=== PATIENT | female | born 1975 | race Caucasian/White ===

== ENCOUNTER 2025-01-31 19:25 | Observation (INO) ==
[2025-01-31 19:38] VITALS: BMI 22.8
[2025-01-31 19:59] LABS: BILIRUBIN,URINE NEGATIVE (NEGATIVE); BLOOD/HEMOGLOBIN,URINE 1+ (NEGATIVE); GLUCOSE, URINE NEGATIVE (NEGATIVE); KETONES,URINE 3+ (NEGATIVE); LEUKOCYTE ESTERASE ,URINE 1+ (NEGATIVE); NITRITES,URINE NEGATIVE (NEGATIVE); PROTEIN,URINE 1+ (NEGATIVE); UROBILINOGEN,URINE NORMAL (NORMAL)
[2025-01-31 20:00] LABS: APPEARANCE,URINE CLEAR (CLEAR); COLOR,URINE YELLOW (YELLOW)
[2025-01-31 20:14] LABS: BACTERIA,URINE TRACE /HPF (NEGATIVE); SQUAMOUS EPITHELIAL CELL,UR MODERATE /HPF (NEGATIVE)
--- NOTE | 2025-01-31 20:42 | ED.ABDFE ---
HPI Time Seen Time Seen by Provider: 01/31/25 20:40 PCP Primary Care Physician: jessica Powers Doctors Chief Complaint Comments: Lower abdominal pain with nausea. Seen by primary care provider this morning and diagnosed with a urinary tract infection and was given Rocephin 1 g IM and Toradol 60 mg IM for pain. The patient states that she now has some suprapubic pain and she is nauseated. Chief Complaint:: lower abd pain thats constant since this am also c/o nausea Source History Provided: Patient Mode of arrival Mode of Arrival: Ambulatory Timing Onset of Chief Complaint: 01/31/25 PMH PMH Past Medical History: No Past Surgical History: Yes Surgical History: and MAIL HANDLER Surgery Past Surgical History Comment: uterine ablastion, tummy tuck Family History History of Family Medical Conditions: No Social History Does patient currently use any type of tobacco product: No Have you used tobacco products in the last 12 months: No Type of Tobacco Use: None Does any household member use tobacco: No Alcohol Use: None Do you use any recreational Drugs:: No Lives With: Family Lives Where: Home Infectious screening In the last 2 months have you had wt loss of >10#?: NO Have you had fever, night sweats or hemotysis?: No Have you traveled outside the country in the last 6 months?: No Isolation: Standard ROS Review of Systems Constitutional: Other (suprapubic abdominal pain with nausea) Eyes: No Symptoms Reported ENTM: No Symptoms Reported Respiratoy: No Symptoms Reported Cardiovascular: No Symptoms Reported Gastrointestinal/Abdominal: Abdominal Pain and Nausea Genitourinary: No Symptoms Reported Neurological: No Symptoms Reported Musculoskeletal: No Symptoms Reported Integumentary: No Symptoms Reported Hematologic/Lymphatic: No Symptoms Reported Endocrine: No Symptoms Reported Psychiatric: No Symptoms Reported PE Vital Signs Vitals: Vital Signs Temperature 98 F Pulse Rate 90 Respiratory Rate 18 Blood Pressure 94/54 O2 Sat by Pulse Oximetry 98 General Limitations: No Limitations General Appearance: In Distress (mild distress) Head Head Exam: Normal Inspection Eyes Eye exam: Normal Appearance, PERRL and EOMI ENT ENT Exam: Normal Exam, Normal Oropharynx and Normal External Ear Exam Neck Neck Exam: Normal Inspection, Full ROM and Trachea Midline Chest Chest Inspection: Normal Inspection and Symmetric Chest Wall Rise Respiratory Respiratory Exam: Normal Lung Sounds Bilat Cardiovascular Cardiovascular Exam: Regular Rate and Normal Rhythm Abdominal Exam Abdominal Exam: Normal Inspection and Normal Bowel Sounds Abdominal Tenderness: Suprapubic Back Back Exam: Normal Inspection Extremeties Extremities Exam: Normal Inspection Neurologic Neurological Exam: Alert, Oriented X3 and CN II-XII Intact Psychiatric Psychiatric Exam: Normal Affect and Normal Mood Skin Skin Exam: Warm, Dry and Intact MDM Differential Diagnosis Differential Diagnosis- Considerations may include:: Urinary obstruction, Urinary tract infection, Urolithiasis and Other (comments) (cystitis) COURSE Treatment Treatment: Patient remained relatively stable during ER visit. We did do a urine analysis and she did have some blood in her urine +1 leukocyte esterase trace bacteria. We did give her Zofran for nausea 4 mg ODT and gave her Pyridium is that we were treating a cystitis but she continue to have some suprapubic pain that was considered at this time to be cystitis but since she was having a pain we did go ahead and do a CT scan of her abdomen and pelvis to see if she had some either kidney stones and appendix side this is also in the differential. We did a CT scan of that and she did end up having a an appendicitis. Called the surgeon on-call Dr. Garcia about this patient at 0 after talking first to the patient about the findings and he stated he will be in to see the patient he has rested premedicate the patient with some Zosyn 3.375 mg. And we also started some IV fluids at 125 cc an hour. The nurses did discuss this patient with case management and they said the patient could be referred to observation. [facility]OR Labs Reviewed Laboratory Results Reviewed?: Yes 01/31/25 22:10 01/31/25 22:10 Laboratory: WBC 11.7 X10^3/uL (3.6-10.0) H 01/31/25 22:10 RBC 4.33 X10^6/uL (3.5-5.4) 01/31/25 22:10 Hgb 13.0 g/dL (12.0-16.0) 01/31/25 22:10 Hct 38.3 % (36.0-47.0) 01/31/25 22:10 MCV 88.4 fL (80.0-100.0) 01/31/25 22:10 MCH 30.0 pg (27.0-34.0) 01/31/25 22:10 MCHC 34.0 g/dL (33.0-35.0) 01/31/25 22:10 RDW 13.8 % (11.6-16.5) 01/31/25 22:10 Plt Count 151 X10^3/uL (150.0-450.0) 01/31/25 22:10 MPV 10.4 fL (7.4-11.0) 01/31/25 22:10 Neut % (Auto) 84.7 % (42.0-75.0) H 01/31/25 22:10 Lymph % (Auto) 10.1 % (21.0-51.0) L 01/31/25 22:10 [place] % (Auto) 4.7 % (0.0-13.0) 01/31/25 22:10 Eos % (Auto) 0.0 % (0.9-2.9) L 01/31/25 22:10 Baso % (Auto) 0.5 % (0.2-1.0) 01/31/25 22:10 Neut # (Auto) 9.9 x10^3/uL (2.2-4.8) H 01/31/25 22:10 Lymph # (Auto) 1.2 X10^3/uL (1.3-2.9) L 01/31/25 22:10 [place] # (Auto) 0.6 x10^3/uL (0.3-0.8) 01/31/25 22:10 Eos # (Auto) 0.0 x10^3/uL (0.0-0.2) 01/31/25 22:10 Baso # (Auto) 0.1 X10^3/uL (0.0-0.1) 01/31/25 22:10 Absolute Nucleated RBC 0.0 /100WBC 01/31/25 22:10 Sodium 139 mmol/L (136-145) 01/31/25 22:10 Corrected Sodium TNP 01/31/25 22:10 Potassium 3.9 mmol/L (3.5-5.1) 01/31/25 22:10 Chloride 103 mmol/L (98-107) 01/31/25 22:10 Carbon Dioxide 27.3 mmol/L (21-32) 01/31/25 22:10 BUN 16 mg/dL (7-18) 01/31/25 22:10 Creatinine 0.76 mg/dL (0.55-1.02) 01/31/25 22:10 Est GFR (MDRD) Af Amer > 60 (>60) 01/31/25 22:10 Est GFR (MDRD) Non-Af > 60 (>60) 01/31/25 22:10 Glucose 99 mg/dL (65-99) 01/31/25 22:10 Calcium 8.6 mg/dL (8.5-10.1) 01/31/25 22:10 Corrected Calcium 9.3 mg/dL (8.5-10.1) 01/31/25 22:10 Total Bilirubin 0.80 mg/dL (0.2-1.0) 01/31/25 22:10 AST 14 Units/L (15-37) L 01/31/25 22:10 ALT 16 Units/L (12-78) 01/31/25 22:10 Alkaline Phosphatase 54 Units/L (46-116) 01/31/25 22:10 Total Protein 6.7 g/dL (6.4-8.2) 01/31/25 22:10 Albumin 3.1 g/dL (3.4-5.0) L 01/31/25 22:10 Globulin 3.6 g/dL (2.5-4.5) 01/31/25 22:10 Albumin/Globulin Ratio 0.9 Ratio (1.1-2.1) L 01/31/25 22:10 Specimen Type Clean catch urine 01/31/25 19:48 Urine Color Yellow (YELLOW) 01/31/25 19:48 Urine Appearance Clear (CLEAR) 01/31/25 19:48 Urine pH 6.0 (5.0 - 8.0) 01/31/25 19:48 Ur Specific [place] 1.025 (1.000-1.030) 01/31/25 19:48 Urine Protein 1+ (NEGATIVE) 01/31/25 19:48 Urine Glucose (UA) Negative (NEGATIVE) 01/31/25 19:48 Urine Ketones 3+ (NEGATIVE) 01/31/25 19:48 Urine Blood 1+ (NEGATIVE) 01/31/25 19:48 Urine Nitrite Negative (NEGATIVE) 01/31/25 19:48 Urine Bilirubin Negative (NEGATIVE) 01/31/25 19:48 Urine Urobilinogen Normal (NORMAL) 01/31/25 19:48 Ur Leukocyte Esterase 1+ (NEGATIVE) 01/31/25 19:48 Urine RBC 3-5 /HPF (0-3) A 01/31/25 19:48 Urine WBC 0-2 /HPF (0-5) 01/31/25 19:48 Ur Squamous Epith Cells Moderate /HPF (NEGATIVE) 01/31/25 19:48 Urine Bacteria Trace /HPF (NEGATIVE) 01/31/25 19:48 Ur Culture Indicated? No/not indicated 01/31/25 19:48 Opioid Opioid Risk Tool Total: 0 Total Score Risk Category: Low Risk Copyright: Richy FRIEDMAN predicting aberrant behaviors Discharge Plan Diagnosis Discharge Problem: Appendicitis Discharge Plan Patient Disposition: ADMITTED INPATIENT Condition: Stable Orders to Discharge Patient Discharge Orders: Transfer (Routine); Ordered 01/31/25 Ordered By: Koby Diaz
[2025-01-31] MEDS: ZOFRAN ODT PO ONE (20:53)
[2025-01-31] MEDS: PYRIDIUM PO ONE (21:00)
--- NOTE | 2025-01-31 22:00 | CT ---
EXAM:ABDOMEN/PELVIS W/O CONHISTORY:lower abd pain thats constant since this am also c/o nausea;COMPARISON:None.TECHNIQUE:Nonenha nced spiral CT imaging was performed through the abdomen and pelvis and axial, coronal, and sagittal CT images were generated.FINDINGS:The lung bases are clear without effusion. Heart size is normal. The liver is normal. The gallbladder has been removed. The pancreas, spleen, adrenal glands are normal. Both kidneys are normal in size without mass, stone, or hydronephrosis the urinary bladder is grossly normal. The uterus is normal. There is no adnexal mass. The stomach is normal. There is no abnormal dilation of the proximal small bowel. There is prominence of the small bowel loops in the pelvis which measure up to 3.2 cm in diameter. There is some non-specific inflammation in the fat surrounding the small bowel in the pelvis. There are stones in the appendix which is located deep in the pelvis on the right side. The appendix is dilated up to 1.1 cm. There is some non-specific inflammation of the pelvic fat. The large bowel loops are unremarkable.IMPRESSION:Findings are suggestive of appendicitis with secondary inflammation of the pelvic small bowel loops.THIS IS AN ELECTRONICALLY VERIFIED FINAL REPORT01/31/2025 9:56 PM - Electronically signed by Isrrael Villegas MD
[2025-01-31 22:22] LABS: BASOPHILS # (AUTO) 0.1 X10^3/uL (0.0-0.1); BASOPHILS % (AUTO) 0.5 % (0.2-1.0); HEMATOCRIT 38.3 % (36.0-47.0); LYMPHOCYTES # (AUTO) 1.2 X10^3/uL (1.3-2.9); LYMPHOCYTES % (AUTO) 10.1 % (21.0-51.0); MEAN CORPUSCULAR VOLUME 88.4 fL (80.0-100.0); MEAN PLATELET VOLUME 10.4 fL (7.4-11.0); MONOCYTES # (AUTO) 0.6 x10^3/uL (0.3-0.8); MONOCYTES % (AUTO) 4.7 % (0.0-13.0); NEUTROPHILS # (AUTO) 9.9 x10^3/uL (2.2-4.8); NEUTROPHILS % (AUTO) 84.7 % (42.0-75.0); PLATELET COUNT 151 X10^3/uL (150.0-450.0); RED BLOOD COUNT 4.33 X10^6/uL (3.5-5.4); RED CELL DISTRIBUTION WIDTH 13.8 % (11.6-16.5); WHITE BLOOD COUNT 11.7 X10^3/uL (3.6-10.0)
[2025-01-31 22:34] LABS: ALANINE AMINOTRANSFERASE 16 Units/L (12-78); ALBUMIN 3.1 g/dL (3.4-5.0); ALKALINE PHOSPHATASE 54 Units/L (46-116); ASPARTATE AMINO TRANSFERASE 14 Units/L (15-37); BLOOD UREA NITROGEN 16 mg/dL (7-18); CALCIUM 8.6 mg/dL (8.5-10.1); CARBON DIOXIDE 27.3 mmol/L (21-32); CHLORIDE 103 mmol/L (98-107); COR CA(FOR HYPOALB) 9.3 mg/dL (8.5-10.1); CREATININE 0.76 mg/dL (0.55-1.02); GLUCOSE 99 mg/dL (65-99); POTASSIUM 3.9 mmol/L (3.5-5.1); SODIUM 139 mmol/L (136-145); TOTAL PROTEIN 6.7 g/dL (6.4-8.2); eGFR NON BLACK RACES > 60 (>60)
[2025-01-31] MEDS: ZOSYN VIAL 3.375 GRAMS 3.375 G in NS 100 ML IV 100 ML IV SCH (22:41)
[2025-01-31] MEDS: NS 1,000 ML IV 1,000 ML IV SCH (22:41)
[2025-01-31] MEDS ORDERED: NS 250 ML IV 25 ML IV PRN (22:51)
[2025-01-31] MEDS ORDERED: ZOSYN VIAL 3.375 GRAMS 3.375 G in NS 100 ML IV 100 ML IV SCH (22:54)
[2025-01-31] MEDS: ZOSYN VIAL 3.375 GRAMS IV ONE (23:42)
[2025-02-01] MEDS: MORPHINE SULFATE INJ 2 MG INJ IVP PRN (00:27)
[2025-02-01] MEDS: ZOFRAN INJ 4 MG VIAL IVP PRN (00:32)
[2025-02-01] MEDS: DILAUDID INJ IVP PRN (01:04)
[2025-02-01] MEDS: NS 250 ML IV 25 ML IV PRN (05:03)
[2025-02-01] MEDS: HIBICLENS WASH EXT ONE (05:04)
[2025-02-01 05:29] LABS: BASOPHILS % (AUTO) 0.2 % (0.2-1.0); HEMATOCRIT 33.9 % (36.0-47.0); HEMOGLOBIN 11.8 g/dL (12.0-16.0); LYMPHOCYTES # (AUTO) 0.4 X10^3/uL (1.3-2.9); MEAN CORPUSCULAR HEMOGLOBIN 30.7 pg (27.0-34.0); MEAN CORPUSCULAR HGB CONC 34.8 g/dL (33.0-35.0); MEAN CORPUSCULAR VOLUME 88.2 fL (80.0-100.0); MEAN PLATELET VOLUME 11.3 fL (7.4-11.0); MONOCYTES # (AUTO) 0.4 x10^3/uL (0.3-0.8); MONOCYTES % (AUTO) 4.7 % (0.0-13.0); NEUTROPHILS # (AUTO) 8.2 x10^3/uL (2.2-4.8); NEUTROPHILS % (AUTO) 91.1 % (42.0-75.0); PLATELET COUNT 140 X10^3/uL (150.0-450.0); RED BLOOD COUNT 3.84 X10^6/uL (3.5-5.4); RED CELL DISTRIBUTION WIDTH 13.5 % (11.6-16.5)
[2025-02-01 05:33] LABS: ALANINE AMINOTRANSFERASE 377 Units/L (12-78); ALBUMIN 2.7 g/dL (3.4-5.0); ALKALINE PHOSPHATASE 212 Units/L (46-116); ASPARTATE AMINO TRANSFERASE 582 Units/L (15-37); BLOOD UREA NITROGEN 14 mg/dL (7-18); CALCIUM 8.1 mg/dL (8.5-10.1); CARBON DIOXIDE 27.1 mmol/L (21-32); CHLORIDE 105 mmol/L (98-107); COR CA(FOR HYPOALB) 9.1 mg/dL (8.5-10.1); CREATININE 0.77 mg/dL (0.55-1.02); GLUCOSE 109 mg/dL (65-99); POTASSIUM 3.7 mmol/L (3.5-5.1); SODIUM 140 mmol/L (136-145); eGFR NON BLACK RACES > 60 (>60)
[2025-02-01 06:01] LABS: PLATELET MORPHOLOGY COMMENT NORMAL (NORMAL)
[2025-02-01 06:48] LABS: ALANINE AMINOTRANSFERASE 449 Units/L (12-78); ALKALINE PHOSPHATASE 223 Units/L (46-116); ASPARTATE AMINO TRANSFERASE 585 Units/L (15-37)
[2025-02-01] MEDS: NS 100 ML IV 100 ML ONE ×2 (09:10→10:14)
[2025-02-01] MEDS: NS 1,000 ML IV 1,000 ML ONE (09:11)
[2025-02-01] MEDS: NS 1,000 ML IV 1,000 ML IV SCH (09:11)
[2025-02-01] MEDS: LR 1,000 ML IV 1,000 ML IV ONE (10:00)
[2025-02-01] MEDS: DIPRIVAN VIAL 20 ML ONE (10:03)
[2025-02-01] MEDS: FENTANYL VIAL INJ 100 mcg ONE (10:03)
[2025-02-01] MEDS: VERSED ONE (10:03)
[2025-02-01] MEDS: ZEMURON 100 MG VIAL ONE (10:05)
[2025-02-01] MEDS: PEPCID 20 MG VIAL ONE (10:08)
[2025-02-01] MEDS: ZOFRAN INJ 4 MG VIAL ONE (10:08)
[2025-02-01] MEDS: BRIDION ONE (10:08)
[2025-02-01] MEDS ORDERED: DILAUDID INJ IVP PRN (10:14)
[2025-02-01] MEDS: ANCEF VIAL 1 GRAM ONE (10:14)
[2025-02-01] MEDS ORDERED: BENADRYL INJ 50 MG VIAL IVP PRN (10:14)
[2025-02-01] MEDS ORDERED: REGLAN INJ 10 MG VIAL IVP PRN (10:14)
[2025-02-01] MEDS ORDERED: BARHEMSYS INJ IVP PRN (10:14)
[2025-02-01] MEDS ORDERED: ZOFRAN INJ 4 MG VIAL IVP PRN (10:14)
[2025-02-01] MEDS ORDERED: PRECEDEX INJ VIAL ONE (10:26)
[2025-02-01] MEDS ORDERED: KETAMINE HCL ONE (10:26)
[2025-02-01] MEDS: LR IV PRN (10:26)
[2025-02-01] MEDS ORDERED: SUPRANE IN ONE (10:26)
[2025-02-01] MEDS: ANCEF VIAL 1 GRAM IV PRN (10:26)
[2025-02-01] MEDS: VERSED IVP PRN (10:28)
[2025-02-01] MEDS: FENTANYL VIAL INJ 100 mcg IVP PRN (10:31)
[2025-02-01] MEDS: ZEMURON 100 MG VIAL IVP PRN (10:32)
[2025-02-01] MEDS ORDERED: XYLOCAINE 2 % (PLAIN) PRN (10:32)
[2025-02-01] MEDS: DIPRIVAN VIAL 80 ML IVP PRN (10:32)
--- NOTE | 2025-02-01 10:33 | DR.H&P ---
H&P History & Physical for Day of: H&P Date: 02/01/25 Chief Complaint Chief Complaint: Right lower quadrant pain radiating into her back History of Present Illness History of Present Illness: 49-year-old female who presented with 1 day history of right lower quadrant pain rating into her back. Evaluated in the emergency room and CT scan consistent with acute appendicitis. Past Medical History Past Medical History: Hypothyroidism Past Surgical History Surgical History: Unknown, Cholecystectomy and Other (History of uterine a blation. History of tummy tuck.) Social History Does patient currently use any type of tobacco product: No Have you used tobacco products in the last 12 months: No Type of Tobacco Use: None Does any household member use tobacco: No Alcohol Use: None Medications Home Medications: Home Medications Medication Instructions Recorded Confirmed Type progesterone micronized 200 mg 200 mg PO QPM 01/31/25 01/31/25 History capsule rabeprazole 20 mg tablet,delayed 20 mg PO QDAY 01/31/25 01/31/25 History release thyroid (pork) 60 mg tablet (UNIFORMER 60 mg PO QAM 01/31/25 01/31/25 History Thyroid) Allergies Allergies Allergy/AdvReac Type Severity Reaction Status Date / Time No Known Allergies Allergy Verified 01/31/25 19:42 Labs 02/01/25 04:33 02/01/25 04:33 Labs: Laboratory WBC 9.0 X10^3/uL (3.6-10.0) 02/01/25 04:33 RBC 3.84 X10^6/uL (3.5-5.4) 02/01/25 04:33 Hgb 11.8 g/dL (12.0-16.0) L 02/01/25 04:33 Hct 33.9 % (36.0-47.0) L 02/01/25 04:33 MCV 88.2 fL (80.0-100.0) 02/01/25 04:33 MCH 30.7 pg (27.0-34.0) 02/01/25 04:33 MCHC 34.8 g/dL (33.0-35.0) 02/01/25 04:33 RDW 13.5 % (11.6-16.5) 02/01/25 04:33 Plt Count 140 X10^3/uL (150.0-450.0) L 02/01/25 04:33 Plt Count Comment Decreased (ADEQUATE) A 02/01/25 04:33 MPV 11.3 fL (7.4-11.0) H 02/01/25 04:33 Neut % (Auto) 91.1 % (42.0-75.0) H 02/01/25 04:33 Lymph % (Auto) 4.0 % (21.0-51.0) L 02/01/25 04:33 [place] % (Auto) 4.7 % (0.0-13.0) 02/01/25 04:33 Eos % (Auto) 0.0 % (0.9-2.9) L 02/01/25 04:33 Baso % (Auto) 0.2 % (0.2-1.0) 02/01/25 04:33 Neut # (Auto) 8.2 x10^3/uL (2.2-4.8) H 02/01/25 04:33 Lymph # (Auto) 0.4 X10^3/uL (1.3-2.9) L 02/01/25 04:33 [place] # (Auto) 0.4 x10^3/uL (0.3-0.8) 02/01/25 04:33 Eos # (Auto) 0.0 x10^3/uL (0.0-0.2) 02/01/25 04:33 Baso # (Auto) 0.0 X10^3/uL (0.0-0.1) 02/01/25 04:33 Absolute Nucleated RBC 0.0 /100WBC 02/01/25 04:33 Total Counted 100 02/01/25 04:33 Neutrophils % (Manual) 95 % (39-76) H 02/01/25 04:33 Lymphocytes % (Manual) 3 % (13-43) L 02/01/25 04:33 Monocytes % (Manual) 2 % (4-9) L 02/01/25 04:33 Eosinophils % (Manual) 0 % (0-6) 02/01/25 04:33 Plt Morphology Comment Normal (NORMAL) 02/01/25 04:33 RBC Morphology Normal (NORMAL) 02/01/25 04:33 Sodium 140 mmol/L (136-145) 02/01/25 04:33 Corrected Sodium TNP 02/01/25 04:33 Potassium 3.7 mmol/L (3.5-5.1) 02/01/25 04:33 Chloride 105 mmol/L (98-107) 02/01/25 04:33 Carbon Dioxide 27.1 mmol/L (21-32) 02/01/25 04:33 BUN 14 mg/dL (7-18) 02/01/25 04:33 Creatinine 0.77 mg/dL (0.55-1.02) 02/01/25 04:33 Est GFR (MDRD) Af Amer > 60 (>60) 02/01/25 04:33 Est GFR (MDRD) Non-Af > 60 (>60) 02/01/25 04:33 Glucose 109 mg/dL (65-99) H 02/01/25 04:33 Calcium 8.1 mg/dL (8.5-10.1) L 02/01/25 04:33 Corrected Calcium 9.1 mg/dL (8.5-10.1) 02/01/25 04:33 Total Bilirubin 1.70 mg/dL (0.2-1.0) H 02/01/25 04:33 AST 585 Units/L (15-37) H 02/01/25 06:32 ALT 449 Units/L (12-78) H 02/01/25 06:32 Alkaline Phosphatase 223 Units/L (46-116) H 02/01/25 06:32 Total Protein 6.0 g/dL (6.4-8.2) L 02/01/25 04:33 Albumin 2.7 g/dL (3.4-5.0) L 02/01/25 04:33 Globulin 3.3 g/dL (2.5-4.5) 02/01/25 04:33 Albumin/Globulin Ratio 0.8 Ratio (1.1-2.1) L 02/01/25 04:33 Specimen Type Clean catch urine 01/31/25 19:48 Urine Color Yellow (YELLOW) 01/31/25 19:48 Urine Appearance Clear (CLEAR) 01/31/25 19:48 Urine pH 6.0 (5.0 - 8.0) 01/31/25 19:48 Ur Specific [place] 1.025 (1.000-1.030) 01/31/25 19:48 Urine Protein 1+ (NEGATIVE) 01/31/25 19:48 Urine Glucose (UA) Negative (NEGATIVE) 01/31/25 19:48 Urine Ketones 3+ (NEGATIVE) 01/31/25 19:48 Urine Blood 1+ (NEGATIVE) 01/31/25 19:48 Urine Nitrite Negative (NEGATIVE) 01/31/25 19:48 Urine Bilirubin Negative (NEGATIVE) 01/31/25 19:48 Urine Urobilinogen Normal (NORMAL) 01/31/25 19:48 Ur Leukocyte Esterase 1+ (NEGATIVE) 01/31/25 19:48 Urine RBC 3-5 /HPF (0-3) A 01/31/25 19:48 Urine WBC 0-2 /HPF (0-5) 01/31/25 19:48 Ur Squamous Epith Cells Moderate /HPF (NEGATIVE) 01/31/25 19:48 Urine Bacteria Trace /HPF (NEGATIVE) 01/31/25 19:48 Ur Culture Indicated? No/not indicated 01/31/25 19:48 Review of Systems Constitutional: See HPI Eyes: No Symptoms Reported ENT: No Symptoms Reported Respiratory: No Symptoms Reported Cardiovascular: No Symptoms Reported Gastrointestinal: See HPI Genitourinary: No Symptoms Reported Musculoskeletal: No Symptoms Reported Skin: No Symptoms Reported Neurological: No Symptoms Reported Physical Exam Vital Signs: Vital Signs Temperature 98.8 F Temperature 98.2 F Pulse Rate [Left Radial] 61 Pulse Rate [Left Radial] 66 Pulse Rate 66 Respiratory Rate 14 Respiratory Rate 18 Respiratory Rate 16 Blood Pressure [Left Arm] 93/51 Blood Pressure [Left Arm] 92/53 Blood Pressure 98/49 O2 Sat by Pulse Oximetry 97 O2 Sat by Pulse Oximetry 98 O2 Sat by Pulse Oximetry 97 Oriented: Normal, Time, Person and Place Eyes: Normal Ear: Normal Nose: Normal Throat: Normal Respiratory: Clear Throughout : Normal Auscultation: Bowel Sounds: Normal Palpation: Other (Right lower quadrant tenderness with rebound) Tenderness: RLQ (With mild rebound) Skin: Normal Musculoskeletal: Normal Psychiatric: Normal Mood Description: Anxious Affect: Anxious Speech Pattern: Clear and Appropriate Assessment/Plan (1) Appendicitis: Status: Acute Plan: IV antibiotics, pain control, plan for laparoscopic appendectomy. Procedure explained to the patient and family. They agreed to proceed. Risk and benefits explained. Review H&P Reviewed: Yes Patient was examined?: Yes
[2025-02-01] MEDS: KETAMINE HCL IV PRN (10:48)
[2025-02-01] MEDS: MARCAINE/EPINEPHRINE ONE (10:58)
[2025-02-01] MEDS: TORADOL 30 MG VIAL ONE (10:58)
[2025-02-01] MEDS: TORADOL 30 MG VIAL IVP PRN (10:59)
[2025-02-01] MEDS: PRECEDEX INJ VIAL IVP PRN (10:59)
[2025-02-01] MEDS: BRIDION IVP PRN (11:02)
--- NOTE | 2025-02-01 11:02 | OR.IMMED ---
IMMEDIATE POST-OP NOTE Immediate Post-Op Note Date of surgery/procedure: 02/01/25 Pre-Op Diagnosis: Acute appendicitis Post-Op Diagnosis: Same Procedure: Laparoscopic appendectomy Description of Procedure: Dictated Surgeon/Trim Carpenter: Ash Garcia MD, FACS Findings: Acute appendicitis Specimens Removed: Appendix Estimated Blood Loss: Minimal Drains: NONE Complications: None Progress Notes: To PACU then to the floor. Begin diet. Discharge home either this afternoon or tomorrow
[2025-02-01] MEDS ORDERED: PERCOCET TAB 5/325 MG PO PRN (11:03)
[2025-02-01] MEDS ORDERED: MOTRIN TAB 600 MG PO PRN (11:22)
[2025-02-01] MEDS: TYLENOL 325 MG TAB PO PRN (15:21)
[2025-02-01 15:22] VITALS: RESP 20
[2025-02-01 17:01] VITALS: BP 100/58; PULSE 89; TEMP 98.4; O2SAT 98
--- NOTE | 2025-02-01 19:32 | W.DIS.FURT ---
Summary of Discharge Discharge Summary of Date Date of Exam: 02/01/25 Admission Date Date of Admission: 01/31/25 Admission Diagnosis Patient Problems (Updated 01/31/25 @ 22:51 by Koby Diaz) Appendicitis (Acute) K37 Hospital Course: This is a 49-year-old female, otherwise healthy who presented with right lower quadrant pain and tenderness. CT scan was consistent with acute appendicitis and she was admitted and taken to the operating room where general underwent uncomplicated laparoscopic appendectomy. She be discharged home with ibuprofen for pain and plans to follow-up with me in 1 week. Vital Signs: Vital Signs (72 hours) 01/31/25 19:26 01/31/25 23:09 02/01/25 00:27 Temperature 98 F Pulse Rate 90 Pulse Rate [Left Radial] Respiratory Rate 18 20 20 Blood Pressure 94/54 Blood Pressure [Left Arm] O2 Sat by Pulse Oximetry 98 Oxygen Delivery Method Room Air 02/01/25 01:04 01/31/25 23:05 02/01/25 00:00 Temperature 97.8 F Pulse Rate Pulse Rate [Left Radial] 89 Respiratory Rate 18 16 Blood Pressure Blood Pressure [Left Arm] 110/63 O2 Sat by Pulse Oximetry 100 Oxygen Delivery Method Room Air 02/01/25 00:57 02/01/25 01:34 02/01/25 03:53 Temperature 98.2 F Pulse Rate Pulse Rate [Left Radial] 66 Respiratory Rate 20 18 16 Blood Pressure Blood Pressure [Left Arm] 92/53 O2 Sat by Pulse Oximetry 97 Oxygen Delivery Method 02/01/25 07:00 02/01/25 07:48 02/01/25 10:00 Temperature 98.8 F Pulse Rate 66 Pulse Rate [Left Radial] 61 Respiratory Rate 18 14 Blood Pressure 98/49 Blood Pressure [Left Arm] 93/51 O2 Sat by Pulse Oximetry 98 97 Oxygen Delivery Method Room Air Room Air Room Air 02/01/25 11:11 02/01/25 11:16 02/01/25 11:21 Temperature 97.4 F L Pulse Rate 65 64 73 Pulse Rate [Left Radial] Respiratory Rate 14 14 14 Blood Pressure 87/49 83/45 84/47 Blood Pressure [Left Arm] O2 Sat by Pulse Oximetry 100 100 100 Oxygen Delivery Method Aerosol Face Tent Aerosol Face Tent Aerosol Face Tent 02/01/25 11:26 02/01/25 11:31 02/01/25 11:36 Temperature Pulse Rate 79 80 74 Pulse Rate [Left Radial] Respiratory Rate 16 16 16 Blood Pressure 90/52 89/53 90/55 Blood Pressure [Left Arm] O2 Sat by Pulse Oximetry 100 100 99 Oxygen Delivery Method Nasal Cannula Nasal Cannula Nasal Cannula 02/01/25 11:41 02/01/25 15:21 02/01/25 16:21 Temperature Pulse Rate 66 Pulse Rate [Left Radial] Respiratory Rate 16 20 20 Blood Pressure 95/50 Blood Pressure [Left Arm] O2 Sat by Pulse Oximetry 99 Oxygen Delivery Method Room Air 02/01/25 11:50 02/01/25 12:05 02/01/25 12:20 Temperature 98.1 F 98 F 97.5 F L Pulse Rate Pulse Rate [Left Radial] 78 68 64 Respiratory Rate 12 18 16 Blood Pressure Blood Pressure [Left Arm] 92/48 85/48 91/52 O2 Sat by Pulse Oximetry 97 97 96 Oxygen Delivery Method Room Air Room Air Room Air 02/01/25 12:35 02/01/25 12:50 02/01/25 13:50 Temperature 98 F 98 F 98.4 F Pulse Rate Pulse Rate [Left Radial] 67 64 75 Respiratory Rate 18 18 14 Blood Pressure Blood Pressure [Left Arm] 91/53 94/55 88/46 O2 Sat by Pulse Oximetry 97 97 98 Oxygen Delivery Method Room Air Room Air Room Air 02/01/25 14:50 02/01/25 15:50 02/01/25 16:50 Temperature 98.9 F 98.6 F 98.4 F Pulse Rate Pulse Rate [Left Radial] 81 85 89 Respiratory Rate 16 16 20 Blood Pressure Blood Pressure [Left Arm] 95/51 90/53 100/58 O2 Sat by Pulse Oximetry 99 97 98 Oxygen Delivery Method Room Air Room Air Room Air Labs: Laboratory Last Values WBC 9.0 X10^3/uL (3.6-10.0) 02/01/25 04:33 RBC 3.84 X10^6/uL (3.5-5.4) 02/01/25 04:33 Hgb 11.8 g/dL (12.0-16.0) L 02/01/25 04:33 Hct 33.9 % (36.0-47.0) L 02/01/25 04:33 MCV 88.2 fL (80.0-100.0) 02/01/25 04:33 MCH 30.7 pg (27.0-34.0) 02/01/25 04:33 MCHC 34.8 g/dL (33.0-35.0) 02/01/25 04:33 RDW 13.5 % (11.6-16.5) 02/01/25 04:33 Plt Count 140 X10^3/uL (150.0-450.0) L 02/01/25 04:33 Plt Count Comment Decreased (ADEQUATE) A 02/01/25 04:33 MPV 11.3 fL (7.4-11.0) H 02/01/25 04:33 Neut % (Auto) 91.1 % (42.0-75.0) H 02/01/25 04:33 Lymph % (Auto) 4.0 % (21.0-51.0) L 02/01/25 04:33 [place] % (Auto) 4.7 % (0.0-13.0) 02/01/25 04:33 Eos % (Auto) 0.0 % (0.9-2.9) L 02/01/25 04:33 Baso % (Auto) 0.2 % (0.2-1.0) 02/01/25 04:33 Neut # (Auto) 8.2 x10^3/uL (2.2-4.8) H 02/01/25 04:33 Lymph # (Auto) 0.4 X10^3/uL (1.3-2.9) L 02/01/25 04:33 [place] # (Auto) 0.4 x10^3/uL (0.3-0.8) 02/01/25 04:33 Eos # (Auto) 0.0 x10^3/uL (0.0-0.2) 02/01/25 04:33 Baso # (Auto) 0.0 X10^3/uL (0.0-0.1) 02/01/25 04:33 Absolute Nucleated RBC 0.0 /100WBC 02/01/25 04:33 Total Counted 100 02/01/25 04:33 Neutrophils % (Manual) 95 % (39-76) H 02/01/25 04:33 Lymphocytes % (Manual) 3 % (13-43) L 02/01/25 04:33 Monocytes % (Manual) 2 % (4-9) L 02/01/25 04:33 Eosinophils % (Manual) 0 % (0-6) 02/01/25 04:33 Plt Morphology Comment Normal (NORMAL) 02/01/25 04:33 RBC Morphology Normal (NORMAL) 02/01/25 04:33 Sodium 140 mmol/L (136-145) 02/01/25 04:33 Corrected Sodium TNP 02/01/25 04:33 Potassium 3.7 mmol/L (3.5-5.1) 02/01/25 04:33 Chloride 105 mmol/L (98-107) 02/01/25 04:33 Carbon Dioxide 27.1 mmol/L (21-32) 02/01/25 04:33 BUN 14 mg/dL (7-18) 02/01/25 04:33 Creatinine 0.77 mg/dL (0.55-1.02) 02/01/25 04:33 Est GFR (MDRD) Af Amer > 60 (>60) 02/01/25 04:33 Est GFR (MDRD) Non-Af > 60 (>60) 02/01/25 04:33 Glucose 109 mg/dL (65-99) H 02/01/25 04:33 Calcium 8.1 mg/dL (8.5-10.1) L 02/01/25 04:33 Corrected Calcium 9.1 mg/dL (8.5-10.1) 02/01/25 04:33 Total Bilirubin 1.70 mg/dL (0.2-1.0) H 02/01/25 04:33 AST 585 Units/L (15-37) H 02/01/25 06:32 ALT 449 Units/L (12-78) H 02/01/25 06:32 Alkaline Phosphatase 223 Units/L (46-116) H 02/01/25 06:32 Total Protein 6.0 g/dL (6.4-8.2) L 02/01/25 04:33 Albumin 2.7 g/dL (3.4-5.0) L 02/01/25 04:33 Globulin 3.3 g/dL (2.5-4.5) 02/01/25 04:33 Albumin/Globulin Ratio 0.8 Ratio (1.1-2.1) L 02/01/25 04:33 Specimen Type Clean catch urine 01/31/25 19:48 Urine Color Yellow (YELLOW) 01/31/25 19:48 Urine Appearance Clear (CLEAR) 01/31/25 19:48 Urine pH 6.0 (5.0 - 8.0) 01/31/25 19:48 Ur Specific [place] 1.025 (1.000-1.030) 01/31/25 19:48 Urine Protein 1+ (NEGATIVE) 01/31/25 19:48 Urine Glucose (UA) Negative (NEGATIVE) 01/31/25 19:48 Urine Ketones 3+ (NEGATIVE) 01/31/25 19:48 Urine Blood 1+ (NEGATIVE) 01/31/25 19:48 Urine Nitrite Negative (NEGATIVE) 01/31/25 19:48 Urine Bilirubin Negative (NEGATIVE) 01/31/25 19:48 Urine Urobilinogen Normal (NORMAL) 01/31/25 19:48 Ur Leukocyte Esterase 1+ (NEGATIVE) 01/31/25 19:48 Urine RBC 3-5 /HPF (0-3) A 01/31/25 19:48 Urine WBC 0-2 /HPF (0-5) 01/31/25 19:48 Ur Squamous Epith Cells Moderate /HPF (NEGATIVE) 01/31/25 19:48 Urine Bacteria Trace /HPF (NEGATIVE) 01/31/25 19:48 Ur Culture Indicated? No/not indicated 01/31/25 19:48 Reason For Visit: APPENDICITIS Discharge Date Discharge Date: 02/01/25 Discharge Diagnosis All Active Problems (Updated 01/31/25 @ 22:51 by Koby Diaz) Appendicitis (Acute) Plan of Treatment: Continue with present treatment and follow up plan. Pt is to keep follow up appointment as instructed and take medications as ordered. Discharge Medications Discharge Medications: No Known Allergies Allergy (Verified 01/31/25 19:42) CONTINUE taking the following medications progesterone micronized 200 mg capsule 200 mg PO QPM 01/31/25 [History] rabeprazole 20 mg tablet,delayed release 20 mg PO QDAY 01/31/25 [History] thyroid (pork) 60 mg tablet ([employer] Thyroid) 60 mg PO QAM 01/31/25 [History] New Prescriptions acetaminophen 325 mg tablet 650 mg PO Q6H PRN 02/01/25 [Rx] Discharge Disposition Assessment: see hospital course Discharge Plan Discharge Plan Hospital Course: This is a 49-year-old female, otherwise healthy who presented with right lower quadrant pain and tenderness. CT scan was consistent with acute appendicitis and she was admitted and taken to the operating room where general underwent uncomplicated laparoscopic appendectomy. She be discharged home with ibuprofen for pain and plans to follow-up with me in 1 week. Patient Disposition: 01 HOME, SELF-CARE Condition: Stable Health Concerns: Post Hospitalization: new medications and changes needed to prevent readmission or further decline. Pt educated and given instructions on all concerns. Care Plan Goals: return to usual activity Plan of Treatment: Continue with present treatment and follow up plan. Pt is to keep follow up appointment as instructed and take medications as ordered. Assessment: see hospital course Prescription drug monitoring program results: PDMP reviewed and no concerns identified Prescriptions: New acetaminophen 325 mg Tablet 650 mg PO Q6H [id number] Continued rabeprazole 20 mg tablet,delayed release (DR/EC) 20 mg PO QDAY progesterone micronized 200 mg capsule 200 mg PO QPM thyroid (pork) [[employer] Thyroid] 60 mg tablet 60 mg PO QAM Orders to Discharge Patient Discharge Orders: Discharge (Routine); Ordered 02/01/25 Ordered By: Ash Garcia Follow ups/Referrals Follow ups/Referrals: Sherrill VASQUEZ [Primary Care Provider] - 3 days Instructions Instructions: Laparoscopic Appendectomy, Adult, Care After, [id number] Stand Alone Forms: Excuse From Work or School, Find Help Web Site, Post Hospital Follow Up Care
[2025-02-01] MEDS ORDERED: CIPRO TAB 500 MG PO SCH (21:00)
--- NOTE | 2025-02-02 13:43 | DR.OPNOTE ---
OP NOTE Pre-Op Diagnosis: acute appendicitis Post-Op Diagnosis: same Procedure Date Date Of Procedure: 02/01/25 Procedure: PROCEDURE: Laparoscopic appendectomy NARRATIVE: The patient was taken to the operative suite and placed in supine position. General endotracheal anesthesia induced. The entire abdomen prepped and draped in sterile fashion. Patient placed in Trendelenburg position and rolled to her left. Timeout for the procedure obtained. 5 mm incision was made lateral to the left rectus sheath on line with umbilicus and a 5 mm optical trocar used to enter the abdominal cavity. The abdomen insufflated with carbon dioxide to 15 mm of Hg.. Under direct vision a 5 mm trocar placed above the pubic tubercles in the midline and a 12 mm trocar placed in the left lower quadrant. Using a 45 degree scope the appendix was identified after taking down adhesions in the right lower quadrant over the cecum. Appendix was identified and noted to be acutely inflamed. The appendix and it's mesentery divided with 1 fire of the JOSELIN stapler using a vascular load. The appendix was placed in a specimen bag and brought out through the left lower quadrant 12 mm trocar site. Abdomen then irrigated and suctioned free. Trocars removed. All trocar sites closed with 3-0 Vicryl suture in ther subcutaneous layer and the skin closed with Steri-Strips. A total of 10 cc of 0.5% Marcaine with epinephrine injected and distributed between the 3 laparoscopic sites. Patient extubated and taken to PACU in good condition. Type of Anesthesia: General Anesthetic w/ETT Findings: acute appendicitis Specimen/Pathology: appendix Type of Fluids Used:: Lactated Ringers EBL: minimal Drains/Tubes Placed: None Complications:: none Needle/Sponge Count:: correct Disposition/Condition: Pt. tolerated procedure without difficulty. Extubated in the OR and taken to PACU in stable condition.
== END 2025-02-01 17:20 | disposition home or self-care (01) ==
LOC: ER 19:25 → MED/SURG 19:25
PROVIDERS: ADMIT Surgery; ATTEND Surgery
PROC: APPYLAP (ICD-10-PCS; 2025-02-01 10:00)
DX: K35.890 Other acute appendicitis without perforation or gangrene; E03.8 Other specified hypothyroidism; R10.31 Right lower quadrant pain; N39.0 Urinary tract infection, site not specified